=== PATIENT | female | born 1990 | race Caucasian/White ===

== ENCOUNTER 2016-11-22 | Emergency (ER) | payer SELFPAY ==
--- NOTE | 2016-11-22 01:38 | ED ---
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 Patient states she was discharged she squatted down and cut it on the faucet. Patient states the bleeding but it has been controlled since. Patient states her pain is moderate. Patient states there is no other injuries from the incident.Patient denies any recent fever, chills, shortness of breath, chest pain, back pain, abdominal pain, nausea vomiting, numbness or tingling, dysuria or hematuria, constipation or diarrhea, headaches or visual changes, or any other current symptoms. - Related Data Previous Rx's Medication Instructions Recorded Ketorolac [Toradol] 10 mg PO Q6HR #10 tab 12/01/15 Ondansetron Odt [Zofran ODT] 4 mg PO Q8HR PRN #10 tab 12/01/15 Sulfamethoxazole/Trimethoprim 1 each PO Q12H #20 tab 12/01/15 [Bactrim DS 800-160 mg] traMADol HCl [Ultram] 50 mg PO Q6H PRN #20 tab 12/01/15 Allergies Allergy/AdvReac Type Severity Reaction Status Date / Time Penicillins Allergy Unknown Verified 11/22/16 01:27 Review of Systems ROS Statement: Those systems with pertinent positive or pertinent negative responses have been documented in the HPI. ROS Other: All systems not noted in ROS Statement are negative. Past Medical History Additional Past Medical History / Comment(s): kidney stones, ovarian cysts migraines History of Any Multi-Drug Resistant Organisms: None Reported Additional Past Surgical History / Comment(s): stents in ovaries Past Psychological History: No Psychological Hx Reported Smoking Status: Current every day smoker Past Alcohol Use History: None Reported Past Drug Use History: None Reported General Exam General appearance: alert, in no apparent distress Respiratory exam: Present: normal lung sounds bilaterally. Absent: respiratory distress, wheezes, rales, rhonchi, stridor Cardiovascular Exam: Present: regular rate, normal rhythm, normal heart sounds. Absent: systolic murmur, diastolic murmur, rubs, gallop, clicks External exam: Present: lacerations (at the 6o'clock position, similar to episotomy. bleeding controlled.) Back exam: Present: normal inspection Neurological exam: Present: alert, oriented X3, CN II-XII intact. Absent: motor sensory deficit Psychiatric exam: Present: normal affect, normal mood Skin exam: Present: warm, dry, intact, normal color. Absent: rash Course Vital Signs 11/22/16 01:14 Temperature 98.2 F Pulse Rate 82 Respiratory 16 Rate Blood Pressure 105/62 O2 Sat by Pulse 98 Oximetry Medical Decision Making - Medical Decision Making 26 yo female presented for vaginal laceration. Patient underwent suture care by Dr. Machuca. Patient was instructed by him regarding follow up care, suture care, and discharge. Patient was reassessed his procedure and all questions were answered. Patient in agreement with discharge. Patient has no other complaints. We did discuss return parameters. Disposition Clinical Impression: Vaginal laceration Disposition: HOME SELF-CARE Condition: Stable Instructions: Laceration (ED) Additional Instructions: Please use medication as discussed. Please follow up with family doctor if symptoms have not improved over the next two days. Please return to the emergency room if your symptoms increase or worsen or for any other concerns. Referrals: Roya Blue NPC [Primary Care Provider] - 1-2 days Vinay Machuca MD [STAFF PHYSICIAN] - 1-2 days Time of Disposition: 01:40
--- NOTE | 2016-11-22 01:39 | P.OBCN ---
History of Present Illness Consult date: 11/22/16 Requesting physician: Ash Sauceda Reason for consult: other (Vaginal laceration) Chief complaint: Traumatic vaginal laceration History of present illness: The patient is a 26-year-old who tonight while in the process of bathing her child slipped landing across the the fossa from the tub and the area where the drain knob extended sustaining a significant straddle injury. She presented to the emergency room at [facility] who then called us for further advice. As the injury could not be clearly explained and the telephone and they were uncertain as to how to proceed, the patient was transferred to our emergency room where I have been consulted to examine her. The patient initially had some fairly significant bleeding and certainly had some discomfort. The bleeding has now essentially stopped. On questioning, she does report that she had a large episiotomy and repair at the time of the of her last child. The injury she feels is in the same spot as the episiotomy repair. Obstetrical history: 4 para 20-2 with 2 term vaginal deliveries and one early miscarriage and one early second trimester miscarriage. Method of contraception is tubal ligation, likely Filshie clips. Gynecologic history: unremarkable and noncontributory Review of Systems Review of systems is confined to history of present illness. Past Medical History Additional Past Medical History / Comment(s): kidney stones, ovarian cysts migraines History of Any Multi-Drug Resistant Organisms: None Reported Additional Past Surgical History / Comment(s): stents in ovaries Past Psychological History: No Psychological Hx Reported Smoking Status: Current every day smoker Past Alcohol Use History: None Reported Past Drug Use History: None Reported Medications and Allergies Allergies Allergy/AdvReac Type Severity Reaction Status Date / Time Penicillins Allergy Unknown Verified 11/22/16 01:27 Exam - Vital Signs Vital signs: Vital Signs Temp Pulse Resp BP Pulse Ox 11/22/16 01:14 98.2 F 82 16 105/62 98 Intake and Output 11/21/16 11/21/16 11/22/16 14:59 22:59 06:59 Other: Weight 41.73 kg Patient Weight 11/22/16 06:59 Weight 41.73 kg In general, this is a well-developed, well-nourished white female in no acute distress. The remainder of her general physical examination his left the emergency room staff. I performed a focal vaginal examination which demonstrated what appeared to be a simple second-degree midline perineal laceration typically sustained with a normal vaginal delivery or with an episiotomy. It did not extend to the rectum nor did extend significantly into the vagina. This was prepped and draped in usual fashion and closed in standard fashion using 3-0 Vicryl difficulty. Estimated blood loss for the closure was less than 1 mL. There were no complications. Assessment and Plan (1) Perineal laceration Status: Acute Plan: The laceration was closed in standard fashion without difficulty using 3-0 Vicryl. I have told her that she can return to see me as needed but anticipate this will heal without difficulty and does not require further follow-up. She can certainly applied topical anesthetics such as dermoblast Ray or use witch paulie or Tucks pads. Should there be any problems with healing or any concerns from her perspective she can call the office or return to see me. I otherwise we'll leave the patient in the care of the emergency room staff for disposition to home as noted above.
== END 2016-11-22 02:11 | disposition home or self-care (01) ==
CPT/HCPCS: 12001; 99284